=== PATIENT | male | born 1970 | race Caucasian/White ===

== ENCOUNTER 2018-02-05 15:57 | Emergency (ER) | payer OTHER ==
[~2018-02-05] VITALS: Ht 195.6 cm; Wt 125.2 kg
[~2018-02-05 15:57] MED LIST: FLEXERIL PO; IBUPROFEN 800800 M1 PO; MOBIC15 MG PO; PERCOCET 5-3251 EACH PO; PERCOCET 7.5-31 EACH PO; PREDNISONE 20 M20 M1 PO; PROAIR HFA8.5 GM INH; ROBAXIN500 MG PO; TESSALON PERLE100 MG PO; ZPAK PO
[2018-02-05] MEDS ORDERED: ZPAK PO (16:43)
[2018-02-05] MEDS ORDERED: PROAIR HFA8.5 GM INH (16:43)
[2018-02-05 16:49] VITALS: BP 145/91
== END 2018-02-05 16:49 | disposition home or self-care (01) ==
LOC: M.ERS 15:57
DX: J18.9 Pneumonia, unspecified organism (principal); J02.9 Acute pharyngitis, unspecified; I10 Essential (primary) hypertension; F17.200 Nicotine dependence, unspecified, uncomplicated; Z88.2 Allergy status to sulfonamides; Z88.5 Allergy status to narcotic agent

== ENCOUNTER 2019-01-04 18:19 | Emergency (ER) | payer OTHER ==
[~2019-01-04] VITALS: Ht 195.6 cm; Wt 122.5 kg
[2019-01-04] MEDS ORDERED: NAPROSYN500 MG PO (19:12)
[2019-01-04 20:00] VITALS: BP 130/79
== END 2019-01-04 20:01 | disposition home or self-care (01) ==
LOC: M.ERS 18:19
DX: S60.212A Contusion of left wrist, initial encounter (principal); I10 Essential (primary) hypertension; Z88.2 Allergy status to sulfonamides; Z88.5 Allergy status to narcotic agent; W01.10XA Fall on same level from slipping, tripping and stumbling with subsequent striking against unspecified object, initial encounter; Y93.89 Activity, other specified; Y92.89 Other specified places as the place of occurrence of the external cause; Y99.8 Other external cause status

== ENCOUNTER 2021-08-27 09:05 | Emergency (ER) | payer OTHER ==
[~2021-08-27] VITALS: Ht 195.6 cm; Wt 122.5 kg
[~2021-08-27 09:05] MED LIST changes: +NAPROSYN500 MG PO
[2021-08-27] MEDS ORDERED: PERCOCET PO (09:32)
[2021-08-27] MEDS ORDERED: CEPHALEXIN500 MG PO (09:32)
[2021-08-27 09:42] VITALS: BP 138/82
== END 2021-08-27 09:43 | disposition home or self-care (01) ==
LOC: M.ERS 09:05
DX: L03.011 Cellulitis of right finger (principal); I10 Essential (primary) hypertension; Z88.5 Allergy status to narcotic agent; Z88.2 Allergy status to sulfonamides

== ENCOUNTER 2021-11-19 15:03 | Emergency (ER) | payer OTHER ==
[~2021-11-19] VITALS: Ht 195.6 cm; Wt 123.8 kg
[~2021-11-19 15:03] MED LIST changes: +CEPHALEXIN500 MG PO; +PERCOCET PO
[2021-11-19 16:45] LABS: INFLUENZA A ANTIGEN Negative (Negative); INFLUENZA B ANTIGEN Negative (Negative)
[2021-11-19 18:39] LABS: ABSOLUTE LYMPHOCYTES 0.9 thou/uL (0.8-5.3); BASOPHILS 0.7 %; EOSINOPHILS 0.5 %; HEMATOCRIT 46.2 % (42.0-52.0); HEMOGLOBIN 15.6 gm/dL (14.0-18.0); LYMPHOCYTES 13.5 %; MCH 30.2 pg (26.0-34.0); MCHC 33.8 g/dL (28.0-37.0); MCV 89.3 fL (80.0-100.0); MONOCYTES 14.3 %; MPV 8.2 fl. (7.2-11.1); NUCLEATED RBCS 0 /100WBC; PLATELET COUNT* 217 thou/uL (150-400); RBC 5.18 mil/uL (4.50-6.00); RDW-CV 13.4 % (10.5-14.5)
[2021-11-19 18:46] LABS: CALCIUM 8.5 mg/dL (8.5-10.1); CREATININE 1.4 mg/dL (0.6-1.3); POTASSIUM 4.1 mmol/L (3.5-5.1)
[2021-11-19 18:53] LABS: ALBUMIN 3.9 g/dL (3.4-5.0); TOTAL BILIRUBIN 0.3 mg/dL (<0.1-1.0); TOTAL PROTEIN 7.2 g/dL (6.4-8.2)
[2021-11-19] MEDS ORDERED: MEDROLDOSEPACK PO (21:13)
[2021-11-19] MEDS ORDERED: TESSALON PERLE100 MG PO (21:13)
[2021-11-19] MEDS ORDERED: PROAIR HFA8.5 GM INH (21:13)
[2021-11-19 21:30] VITALS: BP 130/80
--- NOTE | 2021-11-20 11:51 | EKG ---
[place] [address] ELECTROCARDIOGRAM REPORT Name: MATHEW MOJICA JR Room: [facility]#: [id number] Admission: 11/19/21 Attend Phys: Discharge: 11/19/21 Date of : 74 Date of Service: 11/19/211907 Report #: [id number] THIS REPORT FOR: //name// [facility] ED Test Date: 2021-11-19 Test Time: 19:08:05 Pat Name: MATHEW MOJICA Department: Room: Gender: Skip Pitman: [place] : 1970 Requested By: Kermit Colon Order Number: [id number] MD: Jamal Chavez Measurements Intervals Juda Rate: 85 P: 37 DC: 158 QRS: -19 QRSD: 90 T: 49 QT: 328 QTc: 390 Interpretive Statements Sinus rhythm Supraventricular bigeminy Borderline left axis deviation RSR' in V1 or V2, probably normal variant Compared to ECG 08/26/2017 22:12:16 Atrial premature complex(es) now present RSR' in V1 or V2 now present Electronically Signed On 11-20-2021 11:51:02 WHEEL ROLLER by Jamal Chavez [email or web address] <ELECTRONICALLY SIGNED> By: Jamal Chavez MD, FACC 11/20/21 1151 07 190 Jamal Chavez MD, FACC /EPI
== END 2021-11-19 21:30 | disposition home or self-care (01) ==
LOC: M.ERS 15:03
PROVIDERS: Nurse Practitioner Family; Physician Assistant
DX: J20.9 Acute bronchitis, unspecified (principal); Z20.822 Contact with and (suspected) exposure to COVID-19; E86.0 Dehydration; I10 Essential (primary) hypertension; F17.200 Nicotine dependence, unspecified, uncomplicated; Z98.890 Other specified postprocedural states; Z88.6 Allergy status to analgesic agent; Z88.2 Allergy status to sulfonamides